=== PATIENT | male | born 1950 | race Caucasian/White ===

== ENCOUNTER 2017-07-01 11:58 | Emergency (ER) | payer MEDICARE ==
[2017-07-01] MEDS ORDERED: NS 0.9% 1000 ML* 1,000 ML IV ONE (12:23)
--- NOTE | 2017-07-01 13:59 | RAD ---
Indication: LEFT inguinal bleeding status post catheterization and probable lysis of blood clot yesterday. Question pseudoaneurysm. Comparison: No relevant prior exams available on the [facility]. Technique: Ultrasound of the LEFT groin corresponding with the site of clinical concern. Doppler utilized. Report: There is dermal and subcutaneous edema along the tract of the needle puncture site. No loculated hematoma evident. Patent LEFT common femoral artery with normal triphasic waveforms documented. Patent profunda femoral artery. Patent LEFT common femoral vein with normal venous waveform demonstrating both respiratory phasicity and augmentation without arterialization of the waveform. IMPRESSION: 1. No evidence for LEFT groin pseudoaneurysm. 2. Negative for Doppler stigmata of AV fistula. 3. No evidence for common femoral arterial or venous thrombosis. 4. No evidence for soft tissue plane hematoma. Extensive soft tissue plane edema.
[2017-07-01 14:14] LABS: ABS Basophils 0.1 10^3/ul (0-0.2); ABS Eosinophils 0.1 10^3/ul (0-0.6); ABS Lymphocytes 1.3 10^3/ul (1.0-4.8); ABS Monocytes 0.6 10^3/ul (0-0.8); ABS Neutrophils 7.3 10^3/ul (1.5-7.7); ABS Nucleated RBC 0 10^3/ul; Eosinophil % 1.4 % (0-6); Hematocrit 43 % (42-52); Hemoglobin 14.9 g/dl (14.0-18.0); Lymphocyte % 13.3 % (25-47); Mean Corpuscular HGB Conc 35 g/dl (31-36); Mean Corpuscular Hemoglobin 29 pg (27-31); Mean Corpuscular Volume 83 fL (80-94); Mean Platelet Volume 7 um3 (7.4-10.4); Nucleated Red Blood Cells % 0; Platelet Count 210 10^3/ul (150-450); Red Blood Count 5.21 10^6/ul (4.0-5.4); Red Cell Distribution Width 14 % (10.5-15); White Blood Count 9.4 10^3/ul (3.5-10.8)
[2017-07-01 14:25] LABS: Urine Appearance Clear; Urine Blood 1+ (Negative); Urine Color Straw; Urine Ketones Negative (Negative); Urine Protein Negative (Negative); Urine Specific Gravity 1.005 (1.010-1.030); Urine Urobilinogen Negative (Negative)
[2017-07-01 14:32] LABS: EGFR Non-African American 41.8 (>60)
[2017-07-01 15:16] LABS: INR 1.73 (0.77-1.02)
[2017-07-01 17:46] VITALS: BP 132/84
--- NOTE | 2017-07-01 18:16 | ED ---
Evans Nolan Thomas, scribed for Curly Hutton MD on 07/01/17 at 1234 . Complex/Multi-Sys Presentation - HPI Summary HPI Summary: Prior to arrival of this 67 year old male patient, I received a call from Dr. Danielle, a vascular surgeon, who tells me that he performed a thrombolysis of a clot in the patients right lower extremity yesterday. Dr. Danielle went in through the left groin. Immediately following the surgery, the patient was observed for three hours with no bleeding. However, this morning at 03:00, the patient developed bleeding from the area of the incision and called Dr. Danielle , who referred the patient to the [facility] emergency department for assessment. The patient is on Lovenox and Coumadin. - History Of Current Complaint Chief Complaint: EDExtremityLower Time Seen by Provider: 07/01/17 12:22 Hx Obtained From: Patient Onset/Duration: Lasting Hours - onset today at 03:00, Still Present Timing: Constant Severity Initially: Moderate Aggravating Factor(s): Nothing Alleviating Factor(s): Nothing Associated Signs And Symptoms: Positive: Other - Bleeding from incision site Related History: Other - Recent thrombolysis - Allergies/Home Medications Allergies/Adverse Reactions: Allergies Allergy/AdvReac Type Severity Reaction Status Date / Time No Known Allergies Allergy Verified 07/10/15 14:08 PMH/Surg Hx/FS Hx/Imm Hx Endocrine/Hematology History: Denies: Hx Diabetes, Hx Thyroid Disease Cardiovascular History: Reports: Hx Deep Vein Thrombosis - rt leg, Hx Hypertension, Other Cardiovascular Problems/Disorders - 09/2011,03/2012 ,02/2013 RT LEG CLOTS-SURGERY Respiratory History: Reports: Hx Asthma - child, Other Respiratory Problems/ Disorders - 09/27 RIGHT WEDGE RESECTION FOR CANCER Denies: Hx Chronic Obstructive Pulmonary Disease (COPD) GI History: Denies: Hx Ulcer History: Reports: Hx Renal Disease - HYDRONEPHROSIS Comment Only: Other Problems/Disorders - BILATERAL HYDRONEPHROSIS Musculoskeletal History: Reports: Hx Arthritis - SHOULDER, HANDS, KNEES, ANKLES , Hx Tendonitis - SHOULDER, Other Musculoskeletal History - fasciotomy right leg Sensory History: Reports: Hx Contacts or Glasses - GLASSES Denies: Hx Hearing Aid Opthamlomology History: Reports: Hx Contacts or Glasses - GLASSES - Cancer History Cancer Type, Location and Year: lung/bronchus, skin CA - Surgical History Surgery Procedure, Year, and Place: bunionectomy left,bilat carpal tunnel,dvt right leg with stent in leg per pt, right leg skin grafts,wedge resection right lung, Hx Anesthesia Reactions: No Infectious Disease History: No Infectious Disease History: Denies: Hx Hepatitis, Hx Human Immunodeficiency Virus (HIV), Traveled Outside the [place] in Last 30 Days - Family History Known Family History: Negative: Seizure Disorder - Social History Alcohol Use: Occasionally Alcohol Amount: 3-4 DRINKS/MONTH Substance Use Type: Reports: Marijuana Substance Use Comment - Amount & Last Used: RARE MARIJUANA USE Hx Tobacco Use: Yes Smoking Status (MU): Former Smoker Type: Cigars Amount Used/How Often: 2-3 CIGARS /DAY Length of Time of Smoking/Using Tobacco: 40 YRS Have You Smoked in the Last Year: Yes Review of Systems Negative: Fever Positive: Other - Bleeding from incision site on RLE All Other Systems Reviewed And Are Negative: Yes Physical Exam - Summary Physical Exam Summary: VITAL SIGNS: Reviewed. GENERAL: Patient is a well-developed and nourished male is lying comfortable in the stretcher. Patient is not in any acute respiratory distress. HEAD AND FACE: No signs of trauma. No ecchymosis, hematomas or skull depressions. No sinus tenderness. EYES: PERRLA, EOMI x 2, No injected conjunctiva, no nystagmus. EARS: Hearing grossly intact. Ear canals and tympanic membranes are within normal limits. MOUTH: Oropharynx within normal limits. NECK: Supple, trachea is midline, no adenopathy, no JVD, no carotid bruit, no c- spine tenderness, neck with full ROM. CHEST: Symmetric, no tenderness at palpation LUNGS: Clear to auscultation bilaterally. No wheezing or crackles. CVS: Regular rate and rhythm, S1 and S2 present, no murmurs or gallops appreciated. ABDOMEN: Soft, non-tender. No signs of distention. No rebound no guarding, and no masses palpated. Bowel sounds are normal. EXTREMITIES: On the left inguinal area, there is an incision site with current bleeding. There is no pain. There are good pulses. FROM in all major joints, no edema, no cyanosis or clubbing. NEURO: Alert and oriented x 3. No acute neurological deficits. Speech is normal and follows commands. SKIN: Dry and warm Triage Information Reviewed: Yes Vital Signs On Initial Exam: Initial Vitals Temp Pulse Resp BP Pulse Ox 98.7 F 69 16 131/72 97 07/01/17 12:03 07/01/17 12:03 07/01/17 12:03 07/01/17 12:03 07/01/17 12:03 Vital Signs Reviewed: Yes Diagnostics - Vital Signs Vital Signs Temp Pulse Resp BP Pulse Ox 07/01/17 12:03 98.7 F 69 16 131/72 97 - Laboratory Result Diagrams: 07/01/17 13:30 07/01/17 13:30 Lab Statement: Any lab studies that have been ordered have been reviewed, and results considered in the medical decision making process. - Additional Comments Diagnostic Additional Comments: Groin ultrasound Interpreted by radiologist. Impression: 1. No evidence for LEFT groin pseudoaneurysm. 2. Negative for Doppler stigmata of AV fistula. 3. No evidence for common femoral arterial or venous thrombosis. 4. No evidence for soft tissue plane hematoma. Extensive soft tissue plane edema. Dr. Hutton has reviewed this report. Complex Multi-Symp Course/Dx Assessment/Plan: Prior to arrival of this 67 year old male patient, I received a call from Dr. Danielle, a vascular surgeon, who tells me that he performed a thrombolysis of a clot in the patients right lower extremity yesterday. Dr. Danielle went in through the left groin. Immediately following the surgery, the patient was observed for three hours with no bleeding. However, this morning at 03:00, the patient developed bleeding from the area of the incision and called Dr. Danielle, who referred the patient to the [facility] emergency department for assessment. The patient is on Lovenox and Coumadin. Test results are without significant abnormalities except INR 1.73 and CRP 33. Urinalysis is negative for UTI. Ultrasound Groin shows 1. No evidence for LEFT groin pseudoaneurysm. 2. Negative for Doppler stigmata of AV fistula. 3. No evidence for common femoral arterial or venous thrombosis. 4. No evidence for soft tissue plane hematoma. Extensive soft tissue plane edema. At this point, I discussed the case with Dr. Danielle, who recommended that the patient be discharged home with a pressure dressing and pressure bags to stop the bleeding. The patient was instructed to return if he develops any symptoms. The patient agrees with the discharge plan. The patient is hemodynamically stable and alert and oriented x 3. - Diagnoses Provider Diagnoses: Inguinal pain and bleeding - Physician Notifications Discussed Care Of Patient With: Myles Danielle Instructed by Provider To: Other - I spoke with Dr. Danielle prior to arrival of the patient. I spoke with him again to relay the results of the ultrasound to him. He recommends discharge. Discharge - Discharge Plan Condition: Stable Disposition: HOME Patient Education Materials: Postoperative Bleeding (ED) Referrals: Juju Ram [Primary Care Provider] - 3 Days Additional Instructions: Follow up with your primary care physician in three days. Return to the emergency department for any new or worsening symptoms. The documentation as recorded by the Evans ewing Thomas accurately reflects the service I personally performed and the decisions made by me, Curly Hutton MD.
== END 2017-07-01 17:15 | disposition home or self-care (01) ==
LOC: ED 11:58
DX: I97.618 Postprocedural hemorrhage of a circulatory system organ or structure following other circulatory system procedure (principal); G89.18 Other acute postprocedural pain
CPT/HCPCS: 36415; 80053; 81003; 81015; 85025; 85610; 86140; 86850; 86900; 86901; 99283

== ENCOUNTER 2019-07-11 11:37 | Day surgery (SDC) | payer MEDICARE ==
[~2019-07-11 11:37] MED LIST: Acetaminophen TAB* 325 MG PO PRN; Buffered Lidocaine 1% SYRIN* 1 ML/SYRINGE INTRADERM ONE; Cyclopentolate 1% OPTH.SOL* 2 ML BTL ONE; Ketorolac 0.5% OPHTH (NF) 0.5 % 5 ML BTL ONE; Lidocaine 1% MPF ** 5 ML VIAL ONE; Lidocaine 2% w/ EPI 1:200,000* 20 ML SDV VIAL ONE; Neomycin/Polymy/Dex OPTH.SUSP* MAXITROL 0.1% 5 ML ONE; Phenylephrine OPHTH SOL 2.5%* 2 ML ONE; Povidone Iodine 5% OPTH* 30 ML BTL ONE; Proparacaine 0.5% OPHTH.SOL* 15 ML BTL ONE; acetaZOLAMIDE TAB* 250 MG ONE
[2019-07-11] MEDS ORDERED: fentaNYL* 50 MCG/ML 2 ML VIAL (100 MCG VIAL) ONE (13:26)
[2019-07-11] MEDS ORDERED: Midazolam* 1 MG/ML 2 ML VIAL (2 MG) ONE (13:27)
[2019-07-11 14:32] VITALS: BP 120/67
--- NOTE | 2019-07-11 14:42 | OP ---
DATE OF OPERATION: 07/11/2019 - [facility] DATE OF : 1950. SURGEON: Josh Neville M.D. PREOPERATIVE DIAGNOSIS: Cataract right eye. POSTOPERATIVE DIAGNOSIS: Cataract right eye. OPERATIVE PROCEDURE: Extracapsular cataract extraction with intraocular lens implant right eye. DESCRIPTION OF PROCEDURE: The patient was brought to the operating room after being given 1/2% Alcaine with epinephrine drops in the preoperative area. The eye was prepped and draped in the usual sterile fashion. Sterile drape and eyelid speculum were placed. Again, topical 1/2% Alcaine with epinephrine was given. A paracentesis incision was made at the 9 o'clock position with the No.75 blade. Clear cornea incision 2.2 x 2.2-mm was created at the 12 o'clock position starting at the anterior limbus using the 2.2-mm keratome. The anterior chamber was irrigated with 0.4 mL of 1% non-preservative intracameral lidocaine and filled with DisCoVisc. A capsulorrhexis was completed using the cystotome and the Utrata forceps. Hydrodissection was performed with balanced salt solution. The lens nucleus was removed with the Phacoemulsification handpiece without incident. Cortex was removed with the irrigation-aspiration handpiece. The capsular bag was re-inflated using DisCoVisc and an [id number] 18.5 implant was inserted with the shooter. The irrigation-aspiration handpiece was used to remove all residual DisCoVisc. The eye was refilled with balanced salt solution and the wound checked and found to be watertight. Topical Maxitrol drops were given. [id number] #: [id number] MTDD
== END 2019-07-11 14:27 | disposition home or self-care (01) ==
LOC: OREAST 11:37
PROVIDERS: ATTEND Specialist
DX: H25.11 Age-related nuclear cataract, right eye (principal); Z87.891 Personal history of nicotine dependence; I10 Essential (primary) hypertension; E78.00 Pure hypercholesterolemia, unspecified; Z86.718 Personal history of other venous thrombosis and embolism; Z79.01 Long term (current) use of anticoagulants; I73.9 Peripheral vascular disease, unspecified; E66.01 Morbid (severe) obesity due to excess calories; Z68.38 Body mass index [BMI] 38.0-38.9, adult
CPT/HCPCS: A9270-GY; J2250; J3010; V2632

== ENCOUNTER 2022-04-11 01:23 | Inpatient (IN) ==
[2022-04-11 02:29] LABS: ABS Basophils 0.1 10^3/ul (0-0.2); ABS Lymphocytes 0.6 10^3/ul (1.0-4.8); ABS Monocytes 0.9 10^3/ul (0-0.8); ABS Neutrophils 10.6 10^3/ul (1.5-7.7); Eosinophil % 0.4 %; Hematocrit 37 % (42-52); Hemoglobin 11.3 g/dL (14.0-18.0); Lymphocyte % 5.1 %; Mean Corpuscular HGB Conc 31 g/dL (31-36); Mean Corpuscular Hemoglobin 24 pg (27-31); Mean Corpuscular Volume 77 fL (80-94); Mean Platelet Volume 6.9 fL (7.4-10.4); Platelet Count 253 10^3/uL (150-450); Red Blood Count 4.76 10^6 /uL (4.18-5.48); Red Cell Distribution Width 20 % (10-15); White Blood Count 12.2 10^3/uL (3.5-10.8)
[2022-04-11 02:34] LABS: INR 2.84 (0.89-1.11)
[2022-04-11] MEDS ORDERED: Morphine 4 MG/ML VIAL (1 ml) IV ONE ×4 (02:35→13:49)
[2022-04-11 03:03] LABS: Albumin 4.3 g/dL (3.2-5.2); Albumin/Globulin Ratio 1.7 (1-3); Calcium 9.4 mg/dL (8.6-10.3); Globulin 2.5 g/dL (2-4); Total Bilirubin 0.4 mg/dL (0.2-1.0); Total Protein 6.8 g/dL (6.4-8.9); eGFR CKD-EPI 50.4 (>60)
[2022-04-11] MEDS ORDERED: Iodixanol (CONTRAST) 320 MG/ML 100 ML SDV IV ONE (04:05)
[2022-04-11 07:57] LABS: C Reactive Protein 10.93 mg/L (<8.01)
[2022-04-11 09:57] LABS: Erythrocyte Sed Rate 14 mm/Hr (0-19)
[2022-04-11] MEDS ORDERED: Lidocaine 1% VIAL 10 MG/ML VIAL 30 ML INJ ONE (10:28)
[2022-04-11 13:21] LABS: Body Fluid Source Synovial Fluid
[2022-04-11 13:22] LABS: Body Fluid Appearance Cloudy; Body Fluid Color Pink
[2022-04-11 13:46] LABS: Body Fluid WBC 162711 /mcL
[2022-04-11] MEDS ORDERED: Vancomycin 1,000 MG in NS 0.9% 250 ml 250 ML IVPB ONE (13:58)
[2022-04-11] MEDS ORDERED: cefTRIAXone 2 gm/50 mL D5W 2 GM/50 ML BAG IV ONE (13:59)
[2022-04-11 14:16] LABS: Body Fluid Mono 13 %; Body Fluid Total Cells Counted 200
[2022-04-11] MEDS ORDERED: Phytonadione Oral Solution 5 MG/25 ML UDC PO ONE (15:32)
[2022-04-11] MEDS ORDERED: Vancomycin per Pharmacy 1 EA NOTE FOLLOW UP SCH (16:00)
[2022-04-11] MEDS ORDERED: Vancomycin 1500 MG IV - x ONCE IVPB ONE (16:45)
[2022-04-11] MEDS ORDERED: Lactated Ringers 1000 ml BAG 1,000 ML IV SCH (18:00)
[2022-04-11] MEDS: Vancomycin 1000 MG in NS 0.9% 250 ML IVPB SCH (23:24)
[2022-04-12] MEDS: Vancomycin 1000 MG in NS 0.9% 250 ML IVPB SCH (06:42)
[2022-04-12 07:06] LABS: INR 2.51 (0.89-1.11)
[2022-04-12 07:20] LABS: ABS Lymphocytes 0.7 10^3/ul (1.0-4.8); ABS Monocytes 0.8 10^3/ul (0-0.8); Eosinophil % 0.2 %; Hematocrit 31 % (42-52); Hemoglobin 10.1 g/dL (14.0-18.0); Lymphocyte % 7.7 %; Mean Corpuscular HGB Conc 33 g/dL (31-36); Mean Corpuscular Hemoglobin 25 pg (27-31); Mean Corpuscular Volume 75 fL (80-94); Mean Platelet Volume 7.3 fL (7.4-10.4); Platelet Count 210 10^3/uL (150-450); Red Blood Count 4.11 10^6 /uL (4.18-5.48); Red Cell Distribution Width 20 % (10-15); White Blood Count 8.5 10^3/uL (3.5-10.8)
[2022-04-12 07:38] LABS: Calcium 8.9 mg/dL (8.6-10.3); Potassium 3.7 mmol/L (3.5-5.0); eGFR CKD-EPI 58.9 (>60)
[2022-04-12] MEDS ORDERED: Phytonadione IV (Adult) 10 MG in NS 0.9% 50 ML 50 ML IV ONE (08:00)
[2022-04-12] MEDS ORDERED: Bupivacaine 0.25% w/EPI 10 ML SDV ONE (08:20)
[2022-04-12] MEDS ORDERED: Povidone Iodine 5% OPTH 30 ML BTL ONE (08:20)
[2022-04-12] MEDS ORDERED: Midazolam 2 mg/2 ml VIAL 1 mg/ml 2 ml VIAL (2 mg) ONE (08:53)
[2022-04-12] MEDS ORDERED: fentaNYL 250 mcg/5 ml 50 MCG/ML 5 ml VIAL (250 MCG) ONE (08:54)
[2022-04-12] MEDS ORDERED: Lidocaine 2% PF 5 ML VIAL ONE (08:54)
[2022-04-12] MEDS ORDERED: Propofol 10 MG/ML 20 ML BTL ONE (08:54)
[2022-04-12] MEDS ORDERED: Naloxone 0.4 mg VIAL 0.4 mg/ml 1 ml VIAL IV PRN (09:06)
[2022-04-12] MEDS ORDERED: Ondansetron 4 mg VIAL 2 MG/ML 2 ml VIAL IV PRN (09:06)
[2022-04-12] MEDS ORDERED: fentaNYL 100 mcg/2 ml 50 MCG/ML VIAL IV PRN (09:06)
[2022-04-12] MEDS ORDERED: Levalbuterol 1.25MG/0.5ML NEB.SOL ONE (09:13)
[2022-04-12] MEDS ORDERED: Levalbuterol HFA INHALER MDI ONE (09:19)
[2022-04-12] MEDS ORDERED: Potassium Chlor 20 meq TAB.ER PO ONE (09:27)
[2022-04-12] MEDS ORDERED: Ketamine HCL 50 mg/ml 10 ml VIAL (500 MG) ONE (09:43)
[2022-04-12] MEDS: cefTRIAXone 2 gm/50 mL D5W 2 GM/50 ML BAG IV SCH (13:21)
[2022-04-12] MEDS: Enoxaparin 100 MG/ML SYR SUBCUT SCH (17:50)
[2022-04-12] MEDS ORDERED: Enoxaparin 100 MG/ML SYR SUBCUT SCH (21:00)
[2022-04-13] MEDS ORDERED: Vancomycin Trough Check NOTE FOLLOW UP ONE (05:30)
[2022-04-13] MEDS: Enoxaparin 100 MG/ML SYR SUBCUT SCH (05:42)
[2022-04-13 06:25] LABS: Hematocrit 29 % (42-52); Hemoglobin 9.5 g/dL (14.0-18.0); Platelet Count 213 10^3/uL (150-450)
[2022-04-13 06:29] LABS: INR 1.17 (0.89-1.11)
[2022-04-13 07:40] LABS: Calcium 9.2 mg/dL (8.6-10.3); Potassium 4.5 mmol/L (3.5-5.0)
[2022-04-13] MEDS ORDERED: Warfarin per PHARMACY **NOTE FOLLOW UP SCH (08:00)
[2022-04-13 08:38] LABS: C Reactive Protein 173.67 mg/L (<8.01)
[2022-04-13 09:48] LABS: Erythrocyte Sed Rate 49 mm/Hr (0-19)
[2022-04-13] MEDS: Senna TAB 8.6 mg TAB PO SCH ×2 (11:17→20:54)
[2022-04-13] MEDS: Polyethylene Glycol 3350 17 GM PACKET PO SCH (11:17)
[2022-04-13] MEDS: cefTRIAXone 2 gm/50 mL D5W 2 GM/50 ML BAG IV SCH (13:40)
[2022-04-13 14:07] LABS: eGFR CKD-EPI 52.9 (>60)
[2022-04-13] MEDS: Tiotropium Brom/Olodaterol MDI INH SCH (15:55)
[2022-04-13] MEDS ORDERED: Warfarin DAILY REMINDER **NOTE FOLLOW UP SCH (17:00)
[2022-04-14 05:23] LABS: Hematocrit 27 % (42-52); Hemoglobin 8.6 g/dL (14.0-18.0); Mean Platelet Volume 7.2 fL (7.4-10.4); Platelet Count 249 10^3/uL (150-450)
[2022-04-14 05:29] LABS: INR 1.04 (0.89-1.11)
[2022-04-14 06:22] LABS: Calcium 8.9 mg/dL (8.6-10.3); eGFR CKD-EPI 52.5 (>60)
[2022-04-14] MEDS: Tiotropium Brom/Olodaterol MDI INH SCH (07:57)
[2022-04-14 09:03] LABS: C Reactive Protein 94.24 mg/L (<8.01)
[2022-04-14] MEDS: Senna TAB 8.6 mg TAB PO SCH ×2 (10:53→20:15)
[2022-04-14] MEDS: Polyethylene Glycol 3350 17 GM PACKET PO SCH (10:54)
[2022-04-14 12:09] LABS: Magnesium 1.8 mg/dL (1.9-2.7)
[2022-04-14] MEDS ORDERED: fentaNYL 100 mcg/2 ml 50 MCG/ML VIAL ONE (13:29)
[2022-04-14] MEDS ORDERED: Midazolam 2 mg/2 ml VIAL 1 mg/ml 2 ml VIAL (2 mg) ONE (13:29)
[2022-04-14] MEDS ORDERED: Lidocaine 2% PF 5 ML VIAL ONE (13:30)
[2022-04-14] MEDS ORDERED: Propofol 10 MG/ML 20 ML BTL ONE (13:30)
[2022-04-14] MEDS ORDERED: Dexamethasone IV 4 MG/ML VIAL 1 ml VIAL ONE (13:30)
[2022-04-14] MEDS ORDERED: Ondansetron 4 mg VIAL 2 MG/ML 2 ml VIAL ONE (13:30)
[2022-04-14] MEDS ORDERED: Etomidate 20 mg/10 ml 2 MG/ML 10 ml VIAL ONE (13:30)
[2022-04-14] MEDS: cefTRIAXone 2 gm/50 mL D5W 2 GM/50 ML BAG IV SCH (14:50)
[2022-04-14] MEDS ORDERED: Naloxone 0.4 mg VIAL 0.4 mg/ml 1 ml VIAL IV PRN (15:36)
[2022-04-14] MEDS ORDERED: HYDROmorphone 1 MG/1 ML SYRINGE ONE (15:40)
[2022-04-14] MEDS: HYDROmorphone 1 MG/1 ML SYRINGE IV PRN ×5 (15:42→16:18)
[2022-04-15] MEDS: Enoxaparin 100 MG/ML SYR SUBCUT SCH ×2 (05:50→17:50)
[2022-04-15 06:01] LABS: Hematocrit 30 % (42-52); Hemoglobin 9.5 g/dL (14.0-18.0); Mean Corpuscular HGB Conc 32 g/dL (31-36); Mean Corpuscular Hemoglobin 24 pg (27-31); Mean Corpuscular Volume 75 fL (80-94); Platelet Count 316 10^3/uL (150-450); Red Blood Count 3.93 10^6 /uL (4.18-5.48); Red Cell Distribution Width 20 % (10-15); White Blood Count 9.5 10^3/uL (3.5-10.8)
[2022-04-15 06:41] LABS: Calcium 9.4 mg/dL (8.6-10.3); Potassium 4.3 mmol/L (3.5-5.0); eGFR CKD-EPI 56.8 (>60)
[2022-04-15] MEDS ORDERED: Warfarin per PHARMACY **NOTE FOLLOW UP SCH (07:00)
[2022-04-15] MEDS: Senna TAB 8.6 mg TAB PO SCH ×2 (08:46→21:53)
[2022-04-15] MEDS: Polyethylene Glycol 3350 17 GM PACKET PO SCH (08:46)
[2022-04-15] MEDS: cefTRIAXone 2 gm/50 mL D5W 2 GM/50 ML BAG IV SCH (13:49)
[2022-04-15] MEDS: Tiotropium Brom/Olodaterol MDI INH SCH (14:17)
[2022-04-15] MEDS ORDERED: Warfarin DAILY REMINDER **NOTE FOLLOW UP SCH (17:00)
[2022-04-16] MEDS: Enoxaparin 100 MG/ML SYR SUBCUT SCH ×2 (06:07→14:45)
[2022-04-16 06:19] LABS: ABS Basophils 0.1 10^3/ul (0-0.2); ABS Eosinophils 0.2 10^3/ul (0-0.6); ABS Lymphocytes 1.6 10^3/ul (1.0-4.8); ABS Monocytes 0.5 10^3/ul (0-0.8); ABS Neutrophils 4.8 10^3/ul (1.5-7.7); Hematocrit 29 % (42-52); Hemoglobin 9.6 g/dL (14.0-18.0); Lymphocyte % 22.8 %; Mean Corpuscular HGB Conc 33 g/dL (31-36); Mean Corpuscular Hemoglobin 25 pg (27-31); Mean Corpuscular Volume 75 fL (80-94); Platelet Count 301 10^3/uL (150-450); Red Blood Count 3.85 10^6 /uL (4.18-5.48); Red Cell Distribution Width 19 % (10-15); White Blood Count 7.2 10^3/uL (3.5-10.8)
[2022-04-16 06:32] LABS: INR 1.11 (0.89-1.11)
[2022-04-16 06:47] LABS: Calcium 9.1 mg/dL (8.6-10.3); Potassium 3.9 mmol/L (3.5-5.0); eGFR CKD-EPI 54.3 (>60)
[2022-04-16] MEDS: Tiotropium Brom/Olodaterol MDI INH SCH ×2 (06:50→07:01)
[2022-04-16] MEDS: Senna TAB 8.6 mg TAB PO SCH (08:24)
[2022-04-16] MEDS: Polyethylene Glycol 3350 17 GM PACKET PO SCH (08:24)
[2022-04-16 11:54] VITALS: BP 148/79
[2022-04-16] MEDS: cefTRIAXone 2 gm/50 mL D5W 2 GM/50 ML BAG IV SCH (13:29)
== END 2022-04-16 15:00 | disposition home or self-care (01) | DRG 487 ==
LOC: ED 01:23 → SUATTDRO 14:37 → EDHOLD 14:37 → SSU 19:44
PROVIDERS: ADMIT Hospitalist; ATTEND Internal Medicine

== ENCOUNTER 2022-04-26 16:00 | Inpatient (IN) ==
[2022-04-26 18:28] LABS: ABS Basophils 0.1 10^3/ul (0-0.2); ABS Eosinophils 0.1 10^3/ul (0-0.6); ABS Lymphocytes 0.9 10^3/ul (1.0-4.8); ABS Monocytes 0.5 10^3/ul (0-0.8); ABS Neutrophils 5.4 10^3/ul (1.5-7.7); Eosinophil % 1.8 %; Hematocrit 22 % (42-52); Hemoglobin 6.9 g/dL (14.0-18.0); Lymphocyte % 12.2 %; Mean Corpuscular HGB Conc 32 g/dL (31-36); Mean Corpuscular Hemoglobin 24 pg (27-31); Mean Corpuscular Volume 75 fL (80-94); Mean Platelet Volume 6.6 fL (7.4-10.4); Platelet Count 381 10^3/uL (150-450); Red Blood Count 2.93 10^6 /uL (4.18-5.48); Red Cell Distribution Width 20 % (10-15); White Blood Count 7.1 10^3/uL (3.5-10.8)
[2022-04-26 18:38] LABS: INR 5.74 (0.89-1.11)
[2022-04-26] MEDS ORDERED: [UNRECOGNIZED DRUG - OTHER] IV SLOW PU ONE (18:46)
[2022-04-26] MEDS ORDERED: PROTHROMBIN COMPLEX CONCENTRATE IV SLOW PU ONE (18:46)
[2022-04-26] MEDS ORDERED: Phytonadione IV (Adult) 5 MG in NS 0.9% 50 ML 50 ML IV ONE (18:49)
[2022-04-26 19:08] LABS: Albumin 3.4 g/dL (3.2-5.2); Albumin/Globulin Ratio 1.4 (1-3); Calcium 8.7 mg/dL (8.6-10.3); Globulin 2.4 g/dL (2-4); Potassium 4.2 mmol/L (3.5-5.0); Total Bilirubin 0.2 mg/dL (0.2-1.0); Total Protein 5.8 g/dL (6.4-8.9); eGFR CKD-EPI 53.9 (>60)
[2022-04-26 19:52] LABS: Urine Appearance Clear; Urine Bilirubin Negative (Negative); Urine Color Yellow; Urine Glucose Negative (Negative); Urine Ketones Negative (Negative)
[2022-04-26 19:53] LABS: Urine Blood Negative (Negative); Urine Nitrite Negative (Negative); Urine Protein Negative (Negative); Urine Specific Gravity 1.018 (1.002-1.030); Urine Urobilinogen 0.2 (Negative) (Negative)
[2022-04-26 21:25] LABS: High Sensitivity Troponin 1 Hr 8 pg/mL (<20)
[2022-04-26 21:42] LABS: INR 1.25 (0.89-1.11)
[2022-04-27 01:04] LABS: Hematocrit 24 % (42-52); Hemoglobin 7.8 g/dL (14.0-18.0)
[2022-04-27 05:41] LABS: ABS Basophils 0.1 10^3/ul (0-0.2); ABS Eosinophils 0.2 10^3/ul (0-0.6); ABS Lymphocytes 1.1 10^3/ul (1.0-4.8); ABS Monocytes 0.5 10^3/ul (0-0.8); Eosinophil % 2.6 %; Hematocrit 24 % (42-52); Hemoglobin 7.6 g/dL (14.0-18.0); Lymphocyte % 15.6 %; Mean Corpuscular HGB Conc 32 g/dL (31-36); Mean Corpuscular Hemoglobin 24 pg (27-31); Mean Corpuscular Volume 76 fL (80-94); Mean Platelet Volume 6.8 fL (7.4-10.4); Nucleated Red Blood Cells % 0.1; Platelet Count 373 10^3/uL (150-450); Red Blood Count 3.12 10^6 /uL (4.18-5.48); Red Cell Distribution Width 20 % (10-15); White Blood Count 6.9 10^3/uL (3.5-10.8)
[2022-04-27 05:47] LABS: INR 1.23 (0.89-1.11)
[2022-04-27 06:22] LABS: Albumin 3.3 g/dL (3.2-5.2); Albumin/Globulin Ratio 1.4 (1-3); Calcium 8.9 mg/dL (8.6-10.3); Globulin 2.3 g/dL (2-4); Magnesium 1.7 mg/dL (1.9-2.7); Potassium 4.2 mmol/L (3.5-5.0); Total Bilirubin 0.6 mg/dL (0.2-1.0); Total Protein 5.6 g/dL (6.4-8.9); eGFR CKD-EPI 61.2 (>60)
[2022-04-27] MEDS: Lactated Ringers 1000 ml BAG 1,000 ML IV SCH ×2 (06:22→16:08)
[2022-04-27] MEDS: Tiotropium Brom/Olodaterol MDI INH SCH (08:58)
[2022-04-27] MEDS: cefTRIAXone 2 gm/50 mL D5W 2 GM/50 ML BAG IV SCH (08:58)
[2022-04-27] MEDS ORDERED: cefTRIAXone VIAL 1,000 MG VIAL IVPB SCH (09:00)
[2022-04-27 10:20] LABS: C Reactive Protein 17.71 mg/L (<8.01)
[2022-04-27 15:44] LABS: Hematocrit 27 % (42-52); Hemoglobin 8.6 g/dL (14.0-18.0)
[2022-04-27 23:31] LABS: Hematocrit 24 % (42-52); Hemoglobin 7.6 g/dL (14.0-18.0)
[2022-04-28] MEDS: Lactated Ringers 1000 ml BAG 1,000 ML IV SCH ×2 (04:14→15:14)
[2022-04-28 05:51] LABS: ABS Basophils 0.1 10^3/ul (0-0.2); ABS Eosinophils 0.2 10^3/ul (0-0.6); ABS Monocytes 0.5 10^3/ul (0-0.8); ABS Neutrophils 3.9 10^3/ul (1.5-7.7); Eosinophil % 3.6 %; Hematocrit 24 % (42-52); Hemoglobin 7.6 g/dL (14.0-18.0); Lymphocyte % 18.2 %; Mean Corpuscular HGB Conc 32 g/dL (31-36); Mean Corpuscular Hemoglobin 24 pg (27-31); Mean Corpuscular Volume 76 fL (80-94); Mean Platelet Volume 6.6 fL (7.4-10.4); Nucleated Red Blood Cells % 0.1; Platelet Count 371 10^3/uL (150-450); Red Cell Distribution Width 20 % (10-15); White Blood Count 5.6 10^3/uL (3.5-10.8)
[2022-04-28 06:31] LABS: Anion Gap 8 mmol/L (2-11); Blood Urea Nitrogen 16 mg/dL (6-24); CO2 Carbon Dioxide 24 mmol/L (22-32); Calcium 8.8 mg/dL (8.6-10.3); Chloride 107 mmol/L (101-111); Glucose 85 mg/dL (70-100); Sodium 139 mmol/L (135-145); eGFR CKD-EPI 64.3 (>60)
[2022-04-28] MEDS: Tiotropium Brom/Olodaterol MDI INH SCH (07:57)
[2022-04-28 08:47] LABS: INR 1.3 (0.88-1.18)
[2022-04-28] MEDS: cefTRIAXone 2 gm/50 mL D5W 2 GM/50 ML BAG IV SCH (10:24)
[2022-04-28] MEDS: Enoxaparin 100 MG/ML SYR SUBCUT SCH ×2 (11:50→21:43)
[2022-04-28 13:22] LABS: Hematocrit 25 % (42-52); Hemoglobin 8.4 g/dL (14.0-18.0)
[2022-04-28] MEDS ORDERED: Warfarin per PHARMACY **NOTE FOLLOW UP SCH (16:00)
[2022-04-28 19:14] LABS: Total Iron Binding Capacity 333 mcg/dL (250-450); Transferrin 238 mg/dL (203-362)
[2022-04-28 19:28] LABS: Ferritin 20.4 ng/mL (24-336)
[2022-04-28 19:31] LABS: % Iron Saturation 6 % (15-55); Iron < 20 ug/dL (50-212); Unsaturated Iron Binding 313 ug/dL
[2022-04-29] MEDS: Lactated Ringers 1000 ml BAG 1,000 ML IV SCH (01:21)
[2022-04-29 05:56] LABS: ABS Basophils 0.1 10^3/ul (0-0.2); ABS Eosinophils 0.2 10^3/ul (0-0.6); ABS Lymphocytes 1.1 10^3/ul (1.0-4.8); ABS Monocytes 0.5 10^3/ul (0-0.8); ABS Neutrophils 3.2 10^3/ul (1.5-7.7); Eosinophil % 3.4 %; Hematocrit 24 % (42-52); Hemoglobin 7.8 g/dL (14.0-18.0); Lymphocyte % 21.7 %; Mean Corpuscular HGB Conc 33 g/dL (31-36); Mean Corpuscular Hemoglobin 25 pg (27-31); Mean Corpuscular Volume 75 fL (80-94); Mean Platelet Volume 6.5 fL (7.4-10.4); Nucleated Red Blood Cells % 0.1; Platelet Count 325 10^3/uL (150-450); Red Blood Count 3.13 10^6 /uL (4.18-5.48); Red Cell Distribution Width 20 % (10-15)
[2022-04-29 06:02] LABS: INR 1.66 (0.88-1.18)
[2022-04-29 06:32] LABS: Calcium 8.6 mg/dL (8.6-10.3); Potassium 3.9 mmol/L (3.5-5.0); eGFR CKD-EPI 56.8 (>60)
[2022-04-29] MEDS: cefTRIAXone 2 gm/50 mL D5W 2 GM/50 ML BAG IV SCH (07:35)
[2022-04-29] MEDS: Tiotropium Brom/Olodaterol MDI INH SCH (08:26)
[2022-04-29 11:22] VITALS: BP 137/77
[2022-04-29] MEDS: Enoxaparin 100 MG/ML SYR SUBCUT SCH (12:00)
== END 2022-04-29 12:35 | disposition home or self-care (01) | DRG 812 ==
LOC: EDHOLD 16:00 → ED 16:00 → SUATTDRO 20:42 → EDHOLD 04-27 09:51 → MED 04-27 10:27
PROVIDERS: ADMIT Hospitalist; ATTEND Internal Medicine